=== PATIENT | male | born 1945 | race Asian ===

== ENCOUNTER → 2023-12-13 08:26 | Outpatient (REF) | payer MEDICARE, OTHER, SELFPAY ==
[2023-12-13 09:23] LABS: % Basophils 0.5 % (0-2); % Eosinophils 0.7 % (0-6); % Immature Granulocytes 0.5 % (0-0.5); % Lymphocytes 19.4 % (20.5-51.1); % Monocytes 6.8 % (1.7-9.3); % Neutrophils 72.1 % (42.2-75.2); Absolute Lymphocytes 0.9 10^3/uL (1.2-3.4); Absolute Monocytes 0.3 10^3/uL (0.1-0.6); Absolute Neutrophils 3.2 10^3/uL (1.4-6.5); Hemoglobin 14.5 g/dL (13.0-18.0); Mean Corp Hgb Conc. 34.5 g/dL (33.0-37.0); Mean Corpuscular Hgb 32.4 pg (27.0-31.0); Mean Platelet Volume 9.3 fL (7.4-10.4); Nucleated Red Blood Cells % 0 % (-); Platelet Count 194 10^3/uL (130-400); Red Blood Cell Count 4.47 10^6/uL (4.70-6.10); White Blood Cell Count 4.4 10^3/uL (4.8-10.8)
[2023-12-13 09:59] LABS: Blood Urea Nitrogen 17 mg/dl (9-20); Calcium 9.5 mg/dl (8.4-10.2); Carbon Dioxide 30 mmol/L (22-30); Chloride 105 mmol/L (98-107); Glucose 117 mg/dl (70-99); HDL Cholesterol 44 mg/dl; LDL Cholesterol, Calculated 146 mg/dl; Potassium 4.5 mmol/L (3.5-5.1); Sodium 139 mmol/L (135-145); Total Cholesterol 252 mg/dl (50-199); Triglyceride 312 mg/dl (10-149); Very Low Density Lipoprotein 62 mg/dl (0-30); eGFR > 60.00
[2023-12-13 10:28] LABS: PSA, Total - Diagnostic 0.45 ng/ml (0.0-4.0); TSH 0.57 uIU/ml (0.47-4.68)
[2023-12-13 13:20] LABS: Glycohemoglobin (HgbA1c) 6.7 % (4.0-5.6)
== END ==
LOC: REG 08:26
PROVIDERS: ATTENDING PHYSICIAN Family Medicine; REFERRING PHYSICIAN Radiology Radiation Oncology
DX: E78.2 Mixed hyperlipidemia (principal); R97.20 Elevated prostate specific antigen [PSA]; E03.9 Hypothyroidism, unspecified; G47.33 Obstructive sleep apnea (adult) (pediatric); Z00.00 Encounter for general adult medical examination without abnormal findings; C61 Malignant neoplasm of prostate; R73.03 Prediabetes
CPT/HCPCS: 36415; 80048; 80061; 83036; 84153; 84270; 84402; 84403; 84443; 85025

== ENCOUNTER → 2023-12-20 09:01 | Outpatient (REF) | payer MEDICARE, OTHER, SELFPAY ==
[2023-12-20 09:54] LABS: ALT (SGPT) 24 U/L (0-50); AST (SGOT) 23 U/L (17-59); Albumin 4.4 g/dl (3.5-5.0); Alkaline Phosphatase 64 U/L (38-126); Blood Urea Nitrogen 16 mg/dl (9-20); Calcium 9.4 mg/dl (8.4-10.2); Carbon Dioxide 29 mmol/L (22-30); Chloride 105 mmol/L (98-107); Glucose 130 mg/dl (70-99); Potassium 4.6 mmol/L (3.5-5.1); Sodium 139 mmol/L (135-145); Total Bilirubin 0.9 mg/dl (0.2-1.3); Total Protein 7.3 g/dl (6.3-8.2); eGFR > 60.00
[2023-12-20 13:08] LABS: Glycohemoglobin (HgbA1c) 6.6 % (4.0-5.6)
== END ==
LOC: REG 09:01
PROVIDERS: ATTENDING PHYSICIAN Family Medicine
DX: E78.2 Mixed hyperlipidemia (principal); R97.20 Elevated prostate specific antigen [PSA]; E03.9 Hypothyroidism, unspecified; G47.33 Obstructive sleep apnea (adult) (pediatric); Z00.00 Encounter for general adult medical examination without abnormal findings; R73.09 Other abnormal glucose
CPT/HCPCS: 36415; 80053; 83036

== ENCOUNTER → 2024-01-05 10:57 | Outpatient (REF) | payer MEDICARE, OTHER, SELFPAY | LOC: MRI 3T 10:57 | PROVIDERS: ATTENDING PHYSICIAN Family Medicine | DX: D35.2 Benign neoplasm of pituitary gland (principal) | CPT/HCPCS: 70551 ==

== ENCOUNTER → 2024-03-07 07:59 | Outpatient (REF) | payer MEDICARE, OTHER, SELFPAY ==
[2024-03-07 10:04] LABS: ALT (SGPT) 33 U/L (0-50); AST (SGOT) 27 U/L (17-59); Albumin 4.7 g/dl (3.5-5.0); Alkaline Phosphatase 47 U/L (38-126); Blood Urea Nitrogen 23 mg/dl (9-20); Calcium 9.8 mg/dl (8.4-10.2); Carbon Dioxide 29 mmol/L (22-30); Chloride 102 mmol/L (98-107); Glucose 124 mg/dl (70-99); HDL Cholesterol 55 mg/dl; LDL Cholesterol, Calculated 134 mg/dl; Sodium 142 mmol/L (135-145); Total Bilirubin 0.8 mg/dl (0.2-1.3); Total Cholesterol 220 mg/dl (50-199); Total Protein 7.8 g/dl (6.3-8.2); Triglyceride 157 mg/dl (10-149); Very Low Density Lipoprotein 31 mg/dl (0-30); eGFR > 60.00
[2024-03-07 11:52] LABS: Glycohemoglobin (HgbA1c) 6.3 % (4.0-5.6)
== END ==
LOC: REG 07:59
PROVIDERS: ATTENDING PHYSICIAN Family Medicine
DX: R60.0 Localized edema (principal); E78.5 Hyperlipidemia, unspecified; Z79.899 Other long term (current) drug therapy
CPT/HCPCS: 36415; 80053; 80061; 83036

== ENCOUNTER → 2024-03-28 07:54 | Outpatient (REF) | payer MEDICARE, OTHER, SELFPAY | LOC: HWRAD 07:54 | PROVIDERS: ATTENDING PHYSICIAN Internal Medicine Gastroenterology; FAMILY PHYSICIAN Family Medicine; REFERRING PHYSICIAN Specialist | DX: B18.1 Chronic viral hepatitis B without delta-agent (principal); I63.312 Cerebral infarction due to thrombosis of left middle cerebral artery | CPT/HCPCS: 76700; 93880 ==

== ENCOUNTER → 2024-05-03 14:47 | Outpatient (REF) | payer MEDICARE, OTHER, SELFPAY | LOC: MRI 3T 14:47 | PROVIDERS: ATTENDING PHYSICIAN Internal Medicine Gastroenterology | DX: D49.0 Neoplasm of unspecified behavior of digestive system (principal) | CPT/HCPCS: 74183; A9575 ==

== ENCOUNTER → 2024-06-13 08:20 | Outpatient (REF) | payer MEDICARE, OTHER, SELFPAY ==
[2024-06-13 09:17] LABS: % Basophils 0.6 % (0-2); % Eosinophils 0.3 % (0-6); % Immature Granulocytes 0.3 % (0-0.5); % Lymphocytes 20.1 % (20.5-51.1); % Monocytes 5.7 % (1.7-9.3); Absolute Lymphocytes 0.6 10^3/uL (1.2-3.4); Absolute Monocytes 0.2 10^3/uL (0.1-0.6); Absolute Neutrophils 2.3 10^3/uL (1.4-6.5); Hematocrit 41.5 % (39.0-52.0); Hemoglobin 14.3 g/dL (13.0-18.0); Mean Corp Hgb Conc. 34.5 g/dL (33.0-37.0); Mean Corpuscular Hgb 33.6 pg (27.0-31.0); Mean Corpuscular Volume 97.4 fL (80.0-94.0); Mean Platelet Volume 8.9 fL (7.4-10.4); Nucleated Red Blood Cells % 0 % (-); Platelet Count 182 10^3/uL (130-400); Red Blood Cell Count 4.26 10^6/uL (4.70-6.10); White Blood Cell Count 3.1 10^3/uL (4.8-10.8)
[2024-06-13 09:50] LABS: ALT (SGPT) 31 U/L (0-50); AST (SGOT) 28 U/L (17-59); Albumin 4.2 g/dl (3.5-5.0); Alkaline Phosphatase 50 U/L (38-126); Blood Urea Nitrogen 18 mg/dl (9-20); Calcium 9.4 mg/dl (8.4-10.2); Carbon Dioxide 31 mmol/L (22-30); Chloride 105 mmol/L (98-107); Glucose 114 mg/dl (70-99); HDL Cholesterol 56 mg/dl; LDL Cholesterol, Calculated 123 mg/dl; Potassium 4.5 mmol/L (3.5-5.1); Sodium 147 mmol/L (135-145); Total Bilirubin 0.7 mg/dl (0.2-1.3); Total Cholesterol 210 mg/dl (50-199); Total Protein 6.7 g/dl (6.3-8.2); Triglyceride 159 mg/dl (10-149); Very Low Density Lipoprotein 31 mg/dl (0-30); eGFR > 60.00
[2024-06-13 10:17] LABS: PSA, Total - Diagnostic 0.33 ng/ml (0.0-4.0)
[2024-06-13 10:20] LABS: Glycohemoglobin (HgbA1c) 6.1 % (4.0-5.6)
== END ==
LOC: REG 08:20
PROVIDERS: ATTENDING PHYSICIAN Specialist; FAMILY PHYSICIAN Family Medicine
DX: C61 Malignant neoplasm of prostate (principal); N30.40 Irradiation cystitis without hematuria; N39.41 Urge incontinence; Z86.010 Personal history of colon polyps; E78.2 Mixed hyperlipidemia; B18.0 Chronic viral hepatitis B with delta-agent; E11.69 Type 2 diabetes mellitus with other specified complication
CPT/HCPCS: 36415; 80053; 80061; 83036; 84153; 85025

== ENCOUNTER → 2024-10-25 08:33 | Outpatient (REF) | payer MEDICARE, OTHER, SELFPAY ==
[2024-10-25 09:31] LABS: % Basophils 0.6 % (0-2); % Eosinophils 0.3 % (0-6); % Immature Granulocytes 0.6 % (0-0.5); % Lymphocytes 18.4 % (20.5-51.1); % Monocytes 4.9 % (1.7-9.3); % Neutrophils 75.2 % (42.2-75.2); Absolute Lymphocytes 0.6 10^3/uL (1.2-3.4); Absolute Monocytes 0.2 10^3/uL (0.1-0.6); Absolute Neutrophils 2.6 10^3/uL (1.4-6.5); Hematocrit 41.3 % (39.0-52.0); Mean Corp Hgb Conc. 33.9 g/dL (33.0-37.0); Mean Corpuscular Volume 94.3 fL (80.0-94.0); Mean Platelet Volume 8.9 fL (7.4-10.4); Nucleated Red Blood Cells % 0 % (-); Platelet Count 202 10^3/uL (130-400); Red Blood Cell Count 4.38 10^6/uL (4.70-6.10); Red Cell Dist. Width 12.5 % (11.5-14.5); White Blood Cell Count 3.5 10^3/uL (4.8-10.8)
[2024-10-25 10:26] LABS: ALT (SGPT) 19 U/L (0-50); AST (SGOT) 22 U/L (17-59); Albumin 4.7 g/dl (3.5-5.0); Alkaline Phosphatase 55 U/L (38-126); Blood Urea Nitrogen 20 mg/dl (9-20); Carbon Dioxide 29 mmol/L (22-30); Chloride 103 mmol/L (98-107); Glucose 120 mg/dl (70-99); HDL Cholesterol 67 mg/dl; LDL Cholesterol, Calculated 151 mg/dl; Potassium 4.9 mmol/L (3.5-5.1); Sodium 141 mmol/L (135-145); Total Bilirubin 0.8 mg/dl (0.2-1.3); Total Cholesterol 250 mg/dl (50-199); Total Protein 7.4 g/dl (6.3-8.2); Triglyceride 162 mg/dl (10-149); Very Low Density Lipoprotein 32 mg/dl (0-30); eGFR > 60.00
[2024-10-25 10:31] LABS: TSH Reflex To Free T4 0.29 uIU/ml (0.47-4.68)
[2024-10-25 10:58] LABS: Free T4 1.16 ng/dl (0.78-2.19)
[2024-10-25 11:30] LABS: Glycohemoglobin (HgbA1c) 5.9 % (4.0-5.6)
== END ==
LOC: REG 08:33
PROVIDERS: ATTENDING PHYSICIAN Family Medicine
DX: E78.2 Mixed hyperlipidemia (principal); E03.9 Hypothyroidism, unspecified; R73.09 Other abnormal glucose
CPT/HCPCS: 36415; 80053; 80061; 83036; 84439; 84443; 85025

== ENCOUNTER → 2024-12-12 13:36 | Outpatient (REF) | payer MEDICARE, OTHER, SELFPAY ==
[2024-12-12 15:32] LABS: PSA, Total - Diagnostic 0.31 ng/ml (0.0-4.0)
== END ==
LOC: REG 13:36
PROVIDERS: ATTENDING PHYSICIAN Radiology Radiation Oncology; FAMILY PHYSICIAN Family Medicine; REFERRING PHYSICIAN Specialist
DX: C61 Malignant neoplasm of prostate (principal)
CPT/HCPCS: 36415; 84153

== ENCOUNTER → 2025-01-22 07:38 | Outpatient (REF) | payer MEDICARE, OTHER, SELFPAY ==
[2025-01-22 08:38] LABS: % Basophils 0.5 % (0-2); % Eosinophils 0.8 % (0-6); % Immature Granulocytes 0.3 % (0-0.5); % Lymphocytes 16.2 % (20.5-51.1); % Monocytes 5.6 % (1.7-9.3); % Neutrophils 76.6 % (42.2-75.2); Absolute Lymphocytes 0.6 10^3/uL (1.2-3.4); Absolute Monocytes 0.2 10^3/uL (0.1-0.6); Absolute Neutrophils 2.9 10^3/uL (1.4-6.5); Hematocrit 39.5 % (39.0-52.0); Hemoglobin 13.4 g/dL (13.0-18.0); Mean Corp Hgb Conc. 33.9 g/dL (33.0-37.0); Mean Corpuscular Hgb 32.3 pg (27.0-31.0); Mean Corpuscular Volume 95.2 fL (80.0-94.0); Mean Platelet Volume 9.6 fL (7.4-10.4); Nucleated Red Blood Cells % 0 % (-); Platelet Count 168 10^3/uL (130-400); Red Blood Cell Count 4.15 10^6/uL (4.70-6.10); Red Cell Dist. Width 12.6 % (11.5-14.5); White Blood Cell Count 3.8 10^3/uL (4.8-10.8)
[2025-01-22 09:09] LABS: Cortisol, Random 13.4 ug/dl; TSH Reflex To Free T4 0.55 uIU/ml (0.47-4.68)
[2025-01-22 09:13] LABS: ALT (SGPT) 19 U/L (0-50); AST (SGOT) 20 U/L (17-59); Albumin 4.2 g/dl (3.5-5.0); Alkaline Phosphatase 47 U/L (38-126); Blood Urea Nitrogen 17 mg/dl (9-20); Calcium 9.3 mg/dl (8.4-10.2); Carbon Dioxide 30 mmol/L (22-30); Chloride 107 mmol/L (98-107); Glucose 121 mg/dl (70-99); HDL Cholesterol 68 mg/dl; LDL Cholesterol, Calculated 59 mg/dl; Potassium 3.9 mmol/L (3.5-5.1); Sodium 146 mmol/L (135-145); Total Bilirubin 0.9 mg/dl (0.2-1.3); Total Cholesterol 152 mg/dl (50-199); Total Protein 6.8 g/dl (6.3-8.2); Triglyceride 127 mg/dl (10-149); Very Low Density Lipoprotein 25 mg/dl (0-30); eGFR > 60.00
[2025-01-22 10:09] LABS: Glycohemoglobin (HgbA1c) 5.9 % (4.0-5.6)
== END ==
LOC: REG 07:38
PROVIDERS: ATTENDING PHYSICIAN Family Medicine
DX: E78.2 Mixed hyperlipidemia (principal); E03.9 Hypothyroidism, unspecified; E11.69 Type 2 diabetes mellitus with other specified complication
CPT/HCPCS: 36415; 80053; 80061; 82533; 83036; 84443; 85025

== ENCOUNTER → 2025-02-08 13:41 | Outpatient (REF) | payer MEDICARE, OTHER, SELFPAY | LOC: MRI 13:41 | PROVIDERS: ATTENDING PHYSICIAN Orthopaedic Surgery; FAMILY PHYSICIAN Family Medicine | DX: M54.16 Radiculopathy, lumbar region (principal) | CPT/HCPCS: 72148 ==

== ENCOUNTER → 2025-02-15 09:57 | Outpatient (REF) | payer MEDICARE, OTHER, SELFPAY | LOC: RCS 09:57 | PROVIDERS: ATTENDING PHYSICIAN Physical Medicine & Rehabilitation; FAMILY PHYSICIAN Family Medicine | DX: Z01.818 Encounter for other preprocedural examination (principal) | CPT/HCPCS: 93005 ==

== ENCOUNTER → 2025-05-03 09:22 | Outpatient (REF) | payer MEDICARE, OTHER, SELFPAY | LOC: PAVMRI 09:22 | PROVIDERS: ATTENDING PHYSICIAN Internal Medicine Gastroenterology; FAMILY PHYSICIAN Family Medicine | DX: D49.0 Neoplasm of unspecified behavior of digestive system (principal) | CPT/HCPCS: 74183; A9575 ==

== ENCOUNTER → 2025-08-19 19:51 | Outpatient (REF) | payer MEDICARE, OTHER, SELFPAY | LOC: MRI 3T 19:51 | PROVIDERS: ATTENDING PHYSICIAN Family Medicine | DX: D35.2 Benign neoplasm of pituitary gland (principal); Z86.73 Personal history of transient ischemic attack (TIA), and cerebral infarction without residual deficits | CPT/HCPCS: 70551 ==

== ENCOUNTER → 2025-09-19 08:37 | Outpatient (REF) | payer MEDICARE, OTHER, SELFPAY ==
[2025-09-19 10:59] LABS: Glycohemoglobin (HgbA1c) 6.0 % (4.0-5.9)
[2025-09-19 11:43] LABS: Blood Urea Nitrogen 19 mg/dl (9-20); Calcium 9.0 mg/dl (8.4-10.2); Carbon Dioxide 26 mmol/L (22-30); Chloride 107 mmol/L (98-107); Glucose 109 mg/dl (70-99); Potassium 3.8 mmol/L (3.5-5.1); Sodium 141 mmol/L (135-145); eGFR > 60.00
== END ==
LOC: REG 08:37
PROVIDERS: ATTENDING PHYSICIAN Family Medicine
DX: R73.03 Prediabetes (principal); E03.9 Hypothyroidism, unspecified; E78.5 Hyperlipidemia, unspecified
CPT/HCPCS: 36415; 80048; 83036; 84443